=== PATIENT | male | born 1950 | race Caucasian/White ===

== ENCOUNTER 2018-12-16 12:12 | Emergency (ER) | payer MEDICARE ==
[~2018-12-16] VITALS: Ht 180.3 cm; Wt 108.2 kg
[2018-12-16 12:15] VITALS: BP 154/90
[2018-12-16] MEDS ORDERED: LIDOcaine 1% w/epiNEPHrine 1:200,000 30ml vial IM ONE (13:10)
== END 2018-12-16 13:42 | disposition home or self-care (01) ==
LOC: ER 12:12
DX: S01.81XA Laceration without foreign body of other part of head, initial encounter (principal); W22.8XXA Striking against or struck by other objects, initial encounter; Y93.89 Activity, other specified; Y92.89 Other specified places as the place of occurrence of the external cause; Y99.8 Other external cause status
CPT/HCPCS: 12013; 99283

== ENCOUNTER 2018-12-25 23:36 | Emergency (ER) | payer MEDICARE ==
[~2018-12-25] VITALS: Ht 180.3 cm; Wt 108.0 kg
[2018-12-25 23:38] VITALS: BP 117/72
== END 2018-12-26 00:02 | disposition home or self-care (01) ==
LOC: ER 23:36
DX: S01.81XD Laceration without foreign body of other part of head, subsequent encounter (principal); L08.9 Local infection of the skin and subcutaneous tissue, unspecified; W22.8XXD Striking against or struck by other objects, subsequent encounter
CPT/HCPCS: 99282

== ENCOUNTER 2020-04-02 11:03 | Emergency (ER) | payer MEDICARE ==
[~2020-04-02] VITALS: Ht 182.9 cm; Wt 110.0 kg
[2020-04-02 11:44] LABS: EOSINOPHILS # (AUTO) 0.3 X10'3 (0-0.9); MEAN PLATELET VOLUME 9.6 FL (7.4-10.4)
[2020-04-02 11:46] LABS: BASOPHILS % (AUTO) 0.6 % (0-1); EOSINOPHILS % (AUTO) 3.9 % (0-6); HEMATOCRIT 49.4 % (42.0-52.0); HEMOGLOBIN 16.3 g/dl (14.0-17.9); LYMPHOCYTES # (AUTO) 1.3 X10'3 (1.1-4.8); LYMPHOCYTES % (AUTO) 18.5 % (21-51); MEAN CORPUSCULAR HGB CONC 33.1 g/dL (33.0-36.5); MEAN CORPUSCULAR VOLUME 90.6 FL (78-98); MONOCYTES # (AUTO) 0.8 X10'3 (0-0.9); MONOCYTES % (AUTO) 10.8 % (2-12); NEUTROPHILS # (AUTO) 4.7 X10'3 (1.8-7.7); NEUTROPHILS % (AUTO) 66.2 % (42-75); PLATELET COUNT 147 X10'3 (140-440); RED BLOOD COUNT 5.45 X10'6 (4.70-6.10); WHITE BLOOD COUNT 7.1 X10'3 (4.5-11.0)
[2020-04-02 11:54] LABS: ALANINE AMINOTRANSFERASE 55 U/L (12-78); ALBUMIN 4.2 G/DL (3.4-5.0); ALBUMIN/GLOBULIN RATIO 1.1 (1.1-1.5); ALKALINE PHOSPHATASE 97 IU/L (46-116); ANION GAP 10 (8-16); ASPARTATE AMINO TRANSFERASE 34 U/L (10-37); BILIRUBIN,TOTAL 1.2 MG/DL (0.1-1.0); BLOOD UREA NITROGEN 13 MG/DL (7-18); BUN/CREATININE RATIO 11.8 (5.4-32.0); CHLORIDE 107 MMOL/L (99-107); GLUCOSE 149 MG/DL (70-104); POTASSIUM 3.9 MMOL/L (3.5-5.1); SODIUM 142 MMOL/L (135-145); eGFR 67 ML/MIN
[2020-04-02 14:03] VITALS: BP 159/81
== END 2020-04-02 14:04 | disposition home or self-care (01) ==
LOC: ER 11:04
DX: R00.2 Palpitations (principal); R06.02 Shortness of breath; F17.200 Nicotine dependence, unspecified, uncomplicated
CPT/HCPCS: 36415; 71045; 80053; 83880; 84484; 85025; 93005; 99285